=== PATIENT | male | born 1990 | race African-American/Black ===

== ENCOUNTER 2023-10-28 17:19 | Emergency (ER) | payer OTHER ==
[~2023-10-28] VITALS: Ht 180.3 cm; Wt 95.9 kg
[2023-10-28 22:52] VITALS: BP 156/98; TEMP 97.7; O2SAT 97
== END 2023-10-28 22:55 | disposition home or self-care (01) ==
LOC: M ED 17:19
DX: J06.9 Acute upper respiratory infection, unspecified (principal)